=== PATIENT | male | born 1965 | race Caucasian/White ===

== ENCOUNTER 2020-09-23 11:04 | Emergency (ER) | payer OTHER, SELFPAY ==
[2020-09-23 11:23] VITALS: BP 153/93; PULSE 97; RESP 17; TEMP 36.8; O2SAT 97
--- NOTE | 2020-09-23 11:34 | ED.GENADULT ---
HPI - General Adult General Chief complaint: Abdominal Pain Stated complaint: Abdominal Pain Time Seen by Provider: 09/23/20 11:34 Source: patient Mode of arrival: ambulatory Limitations: no limitations History of Present Illness HPI narrative: 54-year-old male patient presents to the [facility] with complaints of abdominal pain for the past week and diarrhea x1 week. Denies any vomiting or nausea. Denies any fevers, body aches or chills. Patient is an active smoker and does drink daily. Patient states he has not seen a doctor in about 30 years. Patient denies take anything for his symptoms. Related Data Home Medications Medication Instructions Recorded Confirmed No Home Medications 09/23/20 09/23/20 Allergies Allergy/AdvReac Type Severity Reaction Status Date / Time aspirin AdvReac Other Verified 09/23/20 11:31 Penicillins AdvReac Other Verified 09/23/20 11:31 Review of Systems Review of Systems: Narrative: CONSTITUTIONAL: Denies fever, chills, or sweats. EYES: Denies visual changes, redness, or discharge. ENT: Denies rhinorrhea, congestion, sore throat, or otalgia. CARDIOVASCULAR: Denies chest pain, palpitations, or edema. RESPIRATORY: Denies cough or dyspnea. GASTROINTESTINAL: Positive abdominal pain, denies nausea, vomiting, positive diarrhea. GENITOURINARY: Denies dysuria or hematuria. SKIN: Denies rash or itching. MUSCULOSKELETAL: Denies back pain, joint pain, or myalgia. NEUROLOGIC: Denies headache, numbness, or weakness. PSYCHIATRIC: Denies anxiety or depression. [facility] Social History Social History (Updated 09/23/20 @ 11:41 by EMANUEL Mckeon) Smoking status: Current every day smoker Tobacco type: cigarettes Alcohol intake: current Alcohol use details: 6 pack/day Gender identity (if verbalized by the patient): Male Comments At the time of my signature I agree with nursing past medical history, surgical, social, and family history. There is no relevant family history pertinent to the presenting complaint. Exam Narrative: Exam Narrative: GENERAL: Well-appearing, well-nourished, and in no acute distress. HEAD: Normocephalic, atraumatic. EYES: PERRLA and EOMI. ENT: Nares clear, no rhinorrhea or epistaxis. Mucous membranes moist. NECK: Supple. No lymphadenopathy CHEST: Clear to auscultation. No respiratory distress. HEART: Regular rate and rhythm. No murmur heard. Normal peripheral pulses. ABDOMEN: Soft, flat, nondistended. Patient has significant tenderness noted to the left upper quadrant as well as guarding present. No rebound tenderness, or rigid. No pulsatilla masses. Bowel sounds present in all four quadrants. No organomegaly. Negative Gracia?s sign. No periumbicial tenderness. No Supra public tenderness or distension. Good femoral pulses bilaterally. No hernia noted. No scars or surface trauma. EXTREMITIES: Normal range of motion. No edema. SKIN: Warm, dry, no rash. NEURO: No focal deficits. Alert and oriented x3. Course Vital Signs Vital signs: Vital Signs Temperature 36.8 C 09/23/20 11:23 Pulse Rate 97 09/23/20 11:23 Respiratory Rate 17 09/23/20 11:23 Blood Pressure 153/93 H 09/23/20 11:23 Pulse Oximetry 97 09/23/20 11:23 Temperature 36.8 C 09/23/20 11:23 Pulse Rate 97 09/23/20 11:23 Respiratory Rate 17 09/23/20 11:23 Blood Pressure 153/93 H 09/23/20 11:23 Pulse Oximetry 97 09/23/20 11:23 Vital signs reviewed The patient has been informed that they may have pre-hypertension or Hypertension based on a BP reading in the department. I recommend that the patient call the primary care provider listed on their discharge instructions or a physician of their choice this week to arrange follow up for further evaluation of possible pre-hypertension or Hypertension Transfer Transfered to: [place] Transfer rationale: Left upper quadrant abdominal pain Accepting physician: Dr. Bone Transfer comments: Called and spoke with Dr. Larose at [facility]
== END 2020-09-23 11:44 | disposition short-term general hospital (02) ==
PROVIDERS: Emergency Provider Nurse Practitioner Family
DX: R10.12 Left upper quadrant pain (principal); F17.210 Nicotine dependence, cigarettes, uncomplicated
CPT/HCPCS: 99212; G0463

== ENCOUNTER 2020-09-23 12:07 | Emergency (ER) | payer OTHER, SELFPAY ==
--- NOTE | ~2020-09-23 | CT_ITS ---
EXAMINATION: CT abdomen pelvis w con DATE: 09/23/2020 13:12 INDICATION: Abdominal pain. TECHNIQUE: Computed tomography (CT) of the abdomen and pelvis was performed with 100 mL Omnipaque 350 intravenous contrast. Automated exposure control and iterative reconstruction technique were employe d. The dose-length product was 762.52 mGy-cm. COMPARISON: None. FINDINGS: The visualized portions of the lung bases demonstrate mild atelectasis. No pleural effusion . The heart size is normal. No pericardial effusion. There are coronary artery calcifications. There is splenomegaly measuring 15.6 cm. The liver, gallbladder, pancreas, adrenal glands, and kidneys are normal. There is diffuse bladder wall thickening, likely secondary to chronic outlet obstruction from the mildly enlarged prostate. There are no dilated loops of bowel. The appendix is normal. There are no pathologically enlarged lymph nodes. There is no free intraperitoneal fluid. There is mild lumbar spondylosis. IMPRESSION: 1. Moderate splenomegaly. Reviewed, dictated and finalized at location B. FINDER TWISTING DEPARTMENT IMPRESSION: 1. Moderate splenomegaly.
--- NOTE | 2020-09-23 12:23 | ECG_ITS ---
Measurements Intervals [place] Rate: 85 P: 1 ID: 148 QRS: 49 QRSD: 102 T: 49 QT: 348 QTc: 414 Interpretive Statements SINUS RHYTHM INCOMPLETE RIGHT BUNDLE BRANCH BLOCK BORDERLINE ECG Electronically Signed On 09-23-2020 13:52:09 GARAGE HELPER by Rosales Arias D.O.
--- NOTE | 2020-09-23 12:23 | ED.GENADULT ---
HPI - General Adult General Chief complaint: Abdominal Pain Stated complaint: abdominal pain Time Seen by Provider: 09/23/20 12:09 Source: RN notes reviewed History of Present Illness HPI narrative: Patient presents emergency department from home for left upper quadrant abdominal pain. Patient states pain began 1 week ago. Pain is located left upper quadrant does not radiate described as sharp and stabbing in nature improves when he lays down flat but never resolves. States is associated with diarrhea for the past 1 week. He denies any fevers or chills chest pain shortness of breath nausea vomiting or any other symptoms Related Data Allergies Allergy/AdvReac Type Severity Reaction Status Date / Time aspirin AdvReac Other Verified 09/23/20 12:40 Penicillins AdvReac Other Verified 09/23/20 12:40 Review of Systems Review of Systems: Narrative: Gen.: Denies fevers or chills ENT: Denies congestion Respiratory: Denies shortness of breath or cough CV: Denies chest pain or palpitations GI: See HPI denies burning, urgency, frequency or hematuria Musculoskeletal: Denies back pain or muscle pain Neuro: Denies numbness, tingling, weakness or focal weakness Skin: Denies rash Except as documented, all other systems reviewed and negative PMFSH Past Medical History Medical History (Updated 09/23/20 @ 14:45 by Hunter Bone DO) Patient denies significant medical history Social History Social History Smoking status: Current every day smoker Tobacco type: cigarettes Alcohol intake: current Gender identity (if verbalized by the patient): Male Exam Narrative: Exam Narrative: APPEARANCE: No acute distress, nontoxic, resting in bed HEENT: Normocephalic, atraumatic, OMM RESPIRATORY: No respiratory distress, clear to auscultation bilaterally with no rhonchi wheezing or rales CARDIOVASCULAR: RRR s murmur ABDOMINAL: Soft, nondistended, tender palpation left upper quadrant, no tenderness right upper quadrant, right lower quadrant left lower quadrant no rebound or guarding MUSCULOSKELETAl: Moves all extremities. No clubbing, cyanosis or edema. NEURO: Awake and alert. Following commands, speech normal, no focal deficits SKIN:: Warm, dry. Normal Color PSYCHIATRIC: Normal affect/mood Course Course Emergency Course: Patient states that they are feeling much better at this time. States abdominal pain has resolved. Repeat abdominal exam shows the patient's abdomen to be soft and nontender. Discussed with patient results of workup and diagnosis. Discussed need for follow-up with primary care physician, reasons to return to the emergency department in proper use of medication. Patient understands and agrees to current treatment plan discussed with patient his lab results showing hyperglycemia patient with no history of diabetes started the patient is to follow-up with primary care physician Dr. Ramirezfor further outpatient evaluation Vital Signs Vital signs: Vital Signs Temperature 98.8 F 09/23/20 12:30 Pulse Rate 96 09/23/20 12:30 Respiratory Rate 16 09/23/20 12:30 Blood Pressure 151/107 H 09/23/20 12:30 Pulse Oximetry 100 09/23/20 12:30 Temperature 98.8 F 09/23/20 12:30 Pulse Rate 96 09/23/20 12:30 Respiratory Rate 16 09/23/20 12:30 Blood Pressure 151/107 H 09/23/20 12:30 Pulse Oximetry 100 09/23/20 12:30 Medical Decision Making MDM Narrative Medical decision making narrative: Patient's abdomen is soft without significant pain or signs of surgical abdomen on serial exams. Lab and x-ray evaluations are reviewed and patient is felt to be a reasonable candidate for outpatient management. Patient was instructed as to limitations of x-ray and laboratory evaluation and encouraged to return to ED or primary physician for repeat exam in 12 hours if continued or worsening pain Vital Signs Vital Signs: Vital Signs Temperature 98.8 F 09/23/20 12:3
[2020-09-23 12:30] VITALS: BP 151/107; PULSE 96; RESP 16; TEMP 37.1; O2SAT 100
[2020-09-23] MEDS: SODIUM CHLORIDE 0.9% IV 1,000 ML 999 ML IV CONT (12:31)
[2020-09-23 12:35] LABS: Basophils Percent Auto 0.6 % (0.2-1.2); Eosinophils Absolute Auto 0.1 K/mm3 (0-0.3); Hematocrit 47.7 % (42.0-52.0); Hemoglobin 17.7 g/dL (14.0-18.0); Immature Granulocyte Absolute 0.02 K/mm3 (0.00-0.031); Immature Granulocyte Percent A 0.4 % (0-0.5); Immature Platelet Fraction Pct 4.3 % (0.9-11.2); Lymphocytes Absolute Auto 0.83 K/mm3 (0.9-3.2); Lymphocytes Percent Auto 16.2 % (18.3-44.2); Mean Corpuscular HGB Conc 37.1 g/dl (32-36); Mean Corpuscular Hemoglobin 33.4 pg (26-34); Mean Platelet Volume 9.9 fl (7.4-10.4); Monocytes Absolute Auto 0.7 K/mm3 (0.1-0.6); Monocytes Percent Auto 12.9 % (2.6-8.5); Neutrophils Absolute Auto 3.5 K/mm3 (1.3-6.7); Neutrophils Percent Auto 67.9 % (45.5-73.1); Platelet Count Result 134 k/mm3 (150-375); Red Cell Distribution Width 12.8 % (11.5-14.5); White Blood Count 5.1 K/mm3 (4.5-10.0)
[2020-09-23 12:44] LABS: Lipase 130 U/L (23-300)
[2020-09-23 12:46] LABS: Alanine Aminotransferase 22 U/L (4-50); Albumin Level 4.7 g/dL (3.5-5.1); Alkaline Phosphatase 73 U/L (38-126); Anion Gap 9 mmol/L (8-16); Aspartate Amino Transferase 24 U/L (17-59); Bilirubin,Total 1.4 mg/dL (0.2-1.3); Blood Urea Nitrogen 9 mg/dL (9-20); Calcium 9.4 mg/dL (8.4-10.2); Carbon Dioxide 30 mmol/L (22-30); Chloride 96 mmol/L (98-107); Estimated CRCL calculation 129 ml/min; Estimated Glomerular Filt Rate > 60; Glucose 326 mg/dL (75-110); Potassium 4.5 mmol/L (3.4-5.0); Sodium 135 mmol/L (137-145)
[2020-09-23 13:10] LABS: Add Urine Microscopic? YES; Appearance Urine Clear (Clear); Bilirubin Urine Negative (Negative); Blood Urine Negative (Negative); Color Urine Yellow (Yellow); Glucose Urine UA 3+ mg/dL (Negative); Ketones Urine Negative (Negative); Leukocyte Esterase Ur Negative LEU/UL (Negative); Nitrate Urine Negative (Negative); Protein Urine Negative (Negative); RBC Urine 0-2 /hpf (0-2); Specific Grav Ur 1.026 (1.001-1.035); WBC Urine 0-3 /hpf
--- NOTE | 2020-09-23 13:14 | PC.NURSE ---
1314 - Patient in CT at this time.
[2020-09-23 14:47] LABS: Glucose Point of Care 274 (65-105)
[2020-09-23] MEDS: FAMOTIDINE 20 MG/2 ML VIAL IV PUSH (14:50)
== END 2020-09-23 15:00 | disposition home or self-care (01) ==
PROVIDERS: Emergency Provider Emergency Medicine
DX: R10.12 Left upper quadrant pain (principal); F17.210 Nicotine dependence, cigarettes, uncomplicated; I45.10 Unspecified right bundle-branch block
CPT/HCPCS: 36415; 74177; 80053; 81001; 83690; 85025; 85055; 93005; 96365; 96366; 96375; 99284; A9270; J0131; J7030; Q9967

== ENCOUNTER 2020-09-27 12:02 | Outpatient (CLI) | payer OTHER, SELFPAY ==
[2020-09-27 12:33] LABS: Hemoglobin A1C 7.3 % (<5.7)
[2020-09-27 12:51] LABS: Creatinine Urine 148.4 mg/dL
[2020-09-27 12:58] LABS: MALB Creatinine Ratio 12.7 mg/g (0-30); Microalbumin Urine Random 18.9 mg/L (0-16.7)
[2020-09-27 13:07] LABS: Vitamin D 25 Hydroxy 26.7 ng/mL
[2020-09-27 13:09] LABS: Prostate Specific Antigen 1.4 ng/mL (< OR = 4.0)
[2020-09-27 13:44] LABS: Folic Acid 8.6 ng/mL (2.76->20)
[2020-10-01 15:23] LABS: Glutamic acid decarboxylase AA <5 IU/mL (<5)
[2020-10-03 22:34] LABS: Islet Cell Antibody Screen NEGATIVE (NEGATIVE)
== END 2020-09-27 12:03 | disposition home or self-care (01) ==
PROVIDERS: PCP Internal Medicine; Visit Provider Internal Medicine
DX: R73.9 Hyperglycemia, unspecified (principal); I10 Essential (primary) hypertension; E55.9 Vitamin D deficiency, unspecified; G62.1 Alcoholic polyneuropathy; Z12.5 Encounter for screening for malignant neoplasm of prostate
CPT/HCPCS: 36415; 82043; 82306; 82607; 82746; 83036; 84153; 86341; G0103

== ENCOUNTER 2020-10-03 14:13 | Outpatient (CLI) | payer OTHER, SELFPAY ==
--- NOTE | ~2020-10-03 | CT_ITS ---
EXAMINATION: CT lung screening EXAM DATE: 10/03/2020 15:03 INDICATION: Z87.891 Personal history of nicotine dependence. TECHNIQUE: Spiral low dose CT of the chest without contrast. Axial, coronal and sagittal images were reviewed. The dose-length product (DLP) for this examination was 187.12 mGy-cm. The exposure was t ailored according to patient size (auto mA exposure control), and iterative reconstruction (ASIR) was used as additional dose reduction technique. There is no prior study for comparison. FINDINGS: Couple of punctate granulomata. The lungs are clear. Tracheobronchial tree is patent. T here is no mediastinal, hilar or axillary lymphadenopathy. There are no pleural or pericardial effu sions. There is no pneumothorax. Heart normal in size. There is mild to moderate coronary arter ial calcification, arterial sclerosis. Left adrenal hyperplasia. There is thoracic spondylosis witho ut osteoblastic or osteolytic lesions identified. IMPRESSION: Lung-RADS category 2, benign appearance or behavior (<1% chance of malignancy); recommend continued LDCT screening in 1 year. Reviewed, dictated and finalized at location A. NCIAL CONTROLLER
== END 2020-10-03 14:14 | disposition home or self-care (01) ==
PROVIDERS: PCP Internal Medicine; Visit Provider Internal Medicine
DX: Z12.2 Encounter for screening for malignant neoplasm of respiratory organs (principal); Z87.891 Personal history of nicotine dependence
CPT/HCPCS: G0297

== ENCOUNTER 2020-10-11 15:20 | Outpatient (CLI) | payer OTHER, SELFPAY ==
[2020-10-11 15:43] LABS: Basophils Percent Auto 0.7 % (0.2-1.2); Eosinophils Absolute Auto 0.2 K/mm3 (0-0.3); Eosinophils Percent Auto 2.8 % (0-4.4); Hematocrit 44.9 % (42.0-52.0); Hemoglobin 16.2 g/dL (14.0-18.0); Immature Granulocyte Absolute 0.02 K/mm3 (0.00-0.031); Immature Granulocyte Percent A 0.3 % (0-0.5); Lymphocytes Absolute Auto 1.79 K/mm3 (0.9-3.2); Lymphocytes Percent Auto 29.4 % (18.3-44.2); Mean Corpuscular HGB Conc 36.1 g/dl (32-36); Mean Corpuscular Hemoglobin 33.5 pg (26-34); Mean Corpuscular Volume 92.8 fl (80-100); Mean Platelet Volume 10.1 fl (7.4-10.4); Monocytes Absolute Auto 0.7 K/mm3 (0.1-0.6); Monocytes Percent Auto 10.9 % (2.6-8.5); Neutrophils Absolute Auto 3.4 K/mm3 (1.3-6.7); Neutrophils Percent Auto 55.9 % (45.5-73.1); Platelet Count Result 210 k/mm3 (150-375); Red Blood Count 4.84 M/mm3 (4.6-6.20); White Blood Count 6.1 K/mm3 (4.5-10.0)
[2020-10-11 16:06] LABS: Alanine Aminotransferase 19 U/L (4-50); Albumin Level 4.3 g/dL (3.5-5.1); Alkaline Phosphatase 73 U/L (38-126); Amylase 66 U/L (30-110); Anion Gap 7 mmol/L (8-16); Aspartate Amino Transferase 23 U/L (17-59); Bilirubin,Total 0.5 mg/dL (0.2-1.3); Blood Urea Nitrogen 13 mg/dL (9-20); Calcium 9.2 mg/dL (8.4-10.2); Carbon Dioxide 29 mmol/L (22-30); Chloride 102 mmol/L (98-107); Estimated Glomerular Filt Rate > 60; Glucose 224 mg/dL (75-110); Lipase 187 U/L (23-300); Potassium 4.4 mmol/L (3.4-5.0); Sodium 138 mmol/L (137-145)
[2020-10-11 16:07] LABS: Erythrocyte Sedimentation Rate 13 mm/hr (0-20)
[2020-10-11 16:46] LABS: Hepatitis B Surface Antigen Negative (Negative)
[2020-10-11 16:52] LABS: HAV RESULT Negative (Negative); Hepatitis B Core IgM Result Negative (Negative)
[2020-10-11 17:01] LABS: Lactate Dehydrogenase 352 U/L (313-618)
[2020-10-11 17:03] LABS: Hepatitis C Virus Antibody Negative (Negative)
[2020-10-11 17:38] LABS: Folic Acid 9.1 ng/mL (2.76->20)
[2020-10-16 21:32] LABS: ALT 15 U/L (9-46); Alpha-2-Macroglobulin 246 mg/dL (106-279); Apolipoprotein A1 115 mg/dL (94-176); Fibrosis Stage F1-F2; GGT 37 U/L (3-85); Haptoglobin 172 mg/dL (43-212); Necroinflammat Act Grade A0; Total Bilirubin 0.5 mg/dL (0.2-1.2)
== END 2020-10-11 15:21 | disposition home or self-care (01) ==
LOC: ANHLAB 15:22
PROVIDERS: Internal Medicine Gastroenterology; PCP Internal Medicine; Visit Provider Internal Medicine
DX: R16.1 Splenomegaly, not elsewhere classified (principal); E11.9 Type 2 diabetes mellitus without complications; D69.6 Thrombocytopenia, unspecified; G62.1 Alcoholic polyneuropathy
CPT/HCPCS: 36415; 80053; 80074; 81596; 82150; 82607; 82746; 83615; 83690; 85025; 85652; 86038

== ENCOUNTER 2020-10-20 11:49 | Emergency (ER) | payer OTHER, SELFPAY ==
--- NOTE | 2020-10-20 11:55 | ED.GENADULT ---
HPI - General Adult General Chief complaint: Skin/Abscess/Foreign Body Stated complaint: roght foot pain Time Seen by Provider: 10/20/20 11:55 Source: patient Mode of arrival: ambulatory Limitations: no limitations History of Present Illness HPI narrative: 54-year-old male patient presents to the [facility] with complaints of right foot wound that he noticed yesterday. Patient states that he has some numbness and tingling to his feet and typically does not feel his feet very well was recently diagnosed with diabetes within the last month that he is trying to get under control with insulin. Patient denies any injury to the foot that he is aware of. Patient states he has not put any antibiotic ointment or clean the areas at all since noticing it yesterday. Denies any fevers, body aches or chills. Related Data Home Medications Medication Instructions Recorded Confirmed ertugliflozin [Steglatro] 5 mg PO DAILY 10/20/20 10/20/20 insulin glargine [Lantus Solostar 20 unit SUBCUT QAM 10/20/20 10/20/20 U-100 Insulin] lisinopril [Zestril] 20 mg PO DAILY 10/20/20 10/20/20 omeprazole [Prilosec] 40 mg PO DAILY 10/20/20 10/20/20 sucralfate [Carafate] 1 g PO DAILY 10/20/20 10/20/20 Allergies Allergy/AdvReac Type Severity Reaction Status Date / Time aspirin AdvReac Other Verified 10/20/20 12:08 Penicillins AdvReac Other Verified 10/20/20 12:08 Review of Systems Review of Systems: Narrative: CONSTITUTIONAL: Denies fever, chills, or sweats. EYES: Denies visual changes, redness, or discharge. ENT: Denies rhinorrhea, congestion, sore throat, or otalgia. CARDIOVASCULAR: Denies chest pain, palpitations, or edema. RESPIRATORY: Denies cough or dyspnea. GASTROINTESTINAL: Denies abdominal pain, nausea, vomiting, or diarrhea. GENITOURINARY: Denies dysuria or hematuria. SKIN: Denies rash or itching. Positive wound to right foot since yesterday MUSCULOSKELETAL: Denies back pain, joint pain, or myalgia. NEUROLOGIC: Denies headache, numbness, or weakness. PSYCHIATRIC: Denies anxiety or depression. PMF Past Medical History Medical History (Updated 10/20/20 @ 12:15 by EMANUEL Mckeon) Alcohol use disorder Alcoholic polyneuropathy Bladder wall thickening Diabetes Hypovitaminosis D Obesity Patient denies significant medical history Spleen enlarged Thrombocytopenia Uncontrolled hypertension Social History Social History Smoking packs per day: 1 Smoking cigarettes per day: 20.0 Years smoked: 40 Smoking pack-years: 40.00 Smoking status: Current every day smoker Tobacco type: cigarettes Alcohol intake: current Drinks per week: 36 Substance use: never Substance use type: does not use Gender identity (if verbalized by the patient): Male Comments At the time of my signature I agree with nursing past medical history, surgical, social, and family history. There is no relevant family history pertinent to the presenting complaint. Exam Narrative: Exam Narrative: GENERAL: Well-appearing, well-nourished, and in no acute distress. HEAD: Normocephalic, atraumatic. EYES: PERRLA and EOMI. ENT: Nares clear, no rhinorrhea or epistaxis. Mucous membranes moist. NECK: Supple. No lymphadenopathy CHEST: Clear to auscultation. No respiratory distress. HEART: Regular rate and rhythm. No murmur heard. Normal peripheral pulses. ABDOMEN: Soft, nontender, nondistended, normal active bowel sounds. EXTREMITIES: Normal range of motion. No edema. Patient does have some ulcers noted to the lateral side of the right foot. 1 ulcer is measuring approximately 3 cm and is slightly open with surrounding erythema but no active discharge. Patient has another ulcer noted to the lateral side of the right foot that is approximately 2 cm with a blister intact. The ulcers are very superficial SKIN: Warm, dry, no rash. NEURO: No focal deficits. Alert and oriented x3. Course Vital Signs Vit
[2020-10-20 12:01] VITALS: BP 145/78; PULSE 89; RESP 16; TEMP 37.3; O2SAT 100
[2020-10-20 12:09] VITALS: BP 145/78; PULSE 89; RESP 16; TEMP 37.3; O2SAT 100
== END 2020-10-20 12:20 | disposition home or self-care (01) ==
PROVIDERS: Emergency Provider Nurse Practitioner Family; PCP Internal Medicine
DX: E11.621 Type 2 diabetes mellitus with foot ulcer (principal); L97.519 Non-pressure chronic ulcer of other part of right foot with unspecified severity; F17.210 Nicotine dependence, cigarettes, uncomplicated
CPT/HCPCS: 99213; G0463

== ENCOUNTER 2020-10-31 08:01 | Outpatient (CLI) | payer OTHER, SELFPAY ==
--- NOTE | ~2020-10-31 | US_ITS ---
US abdomen complete EXAMINATION: US Abdomen Complete INDICATION: Epigastric pain PROCEDURE: Realtime High Resolution abdomen ultrasound. COMPARISON: No prior studies for comparison FINDINGS: Gallbladder within normal limits. No gallstones, pericholecystic fluid, gallbladder wall t hickening or biliary dilatation. Common bile duct measures 5 mm. Liver echotexture within normal limits without focal mass. Pancreas within normal limits. Pancreati c tail is obscured by bowel gas. Spleen is enlarged measuring 13.8 cm. Renal echotexture is within n ormal limits bilaterally without hydronephrosis, contour deforming mass or renal stone. Right kidney measures 12.6 cm. Left kidney measures 11.4 cm. Visualized aspects of the aorta and IVC are within normal limits. Portal vein is patent. No sonograph ic Gracia's sign indicated by the technologist. IMPRESSION: 1: Splenomegaly. Reviewed, dictated and finalized at location A. INE BRUSH MAKER IMPRESSION: 1: Splenomegaly.
--- NOTE | ~2020-10-31 | US_ITS ---
US arterial ankle brachial ind INDICATION: Peripheral vascular disease. TECHNIQUE: Segmental pressures and plethysmographic and Doppler waveforms of the brachial and lower e xtremity arteries were obtained. COMPARISON: None. FINDINGS: Right and left brachial artery pressures of 137 mm Hg and 136 mm Hg, respectively, are concordant (no rmal difference <= 30 mmHg). The right ankle-brachial index (DEBORA) is 0.68 (normal >= 0.9-1.0). The right great toe-brachial index (TBI) is 0.45 (normal >= 0.60). The left DEBORA is 0.65. The left TBI is 0.59. IMPRESSION: 1. Diminished bilateral ankle-brachial indices consistent with moderate peripheral arterial disease. Reviewed, dictated and finalized at location A. TITCHER LOCKSTITCH IMPRESSION: 1. Diminished bilateral ankle-brachial indices consistent with moderate periphe ral arterial disease.
== END 2020-10-31 08:02 | disposition home or self-care (01) ==
PROVIDERS: PCP Internal Medicine; Visit Provider Internal Medicine Gastroenterology
DX: I73.9 Peripheral vascular disease, unspecified (principal); D69.6 Thrombocytopenia, unspecified; R10.13 Epigastric pain; R16.1 Splenomegaly, not elsewhere classified
CPT/HCPCS: 76700; 93922

== ENCOUNTER 2020-11-16 01:22 | Outpatient (CLI) | payer OTHER, SELFPAY ==
[2020-11-16 20:08] LABS: SARS-CoV-2 RNA PCR Negative
== END 2020-11-16 01:23 | disposition home or self-care (01) ==
LOC: ANHCOVIDDT 01:22
PROVIDERS: PCP Internal Medicine; Visit Provider Internal Medicine Gastroenterology
DX: Z01.812 Encounter for preprocedural laboratory examination (principal); Z20.822 Contact with and (suspected) exposure to COVID-19
CPT/HCPCS: C9803; U0003

== ENCOUNTER 2020-11-19 01:46 | Day surgery (SDC) | payer OTHER, SELFPAY ==
[2020-11-06 09:48] VITALS: BMI 26.4
[2020-11-19 10:54] VITALS: BP 137/78; PULSE 103; RESP 16; TEMP 36.4; O2SAT 100
[2020-11-19] MEDS: LACTATED RINGERS 1,000 ML 150 ML IV CONT (11:06)
[2020-11-19 11:09] LABS: Glucose Point of Care 83 (65-105)
--- NOTE | 2020-11-19 11:16 | WPDANESEPPF ---
Anes - Initial Pre Proc Eval Procedure: Operation Date: 11/19/20 12:00 Proposed Procedures p Esophagogastroduodenoscopy & Screening Colonoscopy - Apolinar Osorio MD Date/Time: 11/19/20 11:16 Surgeon: Apolinar Osorio MD Pre Op Diagnosis: abdominal pain Patient Data Age: 54 Gender: M Height: 6 ft 1 in Weight: 87.7 kg Last Vital Signs Temp 97.5 F L 11/19/20 10:54 Pulse 103 H 11/19/20 10:54 Resp 16 11/19/20 10:54 BP 137/78 11/19/20 10:54 Pulse Ox 100 11/19/20 10:54 Allergies Allergy/AdvReac Type Severity Reaction Status Date / Time aspirin Allergy Severe Other Verified 11/19/20 10:53 Penicillins Allergy Severe Unknown Verified 11/19/20 10:53 Home Medications Medication Instructions Recorded Confirmed Type blood sugar diagnostic #100 ea 10/02/20 11/19/20 Rx blood-glucose meter #1 ea 10/02/20 11/19/20 Rx lancets #100 ea 10/02/20 11/19/20 Rx pen needle, diabetic 29 gauge x #300 ea 10/02/20 11/19/20 Rx 1/2 ertugliflozin [Steglatro] 5 mg PO DAILY 10/20/20 11/19/20 History insulin glargine [Lantus Solostar 25 unit SUBCUT QAM 10/20/20 11/19/20 History U-100 Insulin] lisinopril 20 mg tablet 20 mg PO DAILY #30 tablet 10/28/20 11/19/20 Rx omeprazole 40 mg capsule,delayed 40 mg PO DAILY #30 cap 10/28/20 11/19/20 Rx release pen needle, diabetic [BD 11/06/20 11/19/20 History Ultra-Fine Orig Pen Needle] pen needle, diabetic [BD 11/06/20 11/19/20 History Ultra-Fine Orig Pen Needle] sodium,potassium,mag sulfates 17.5 See Rx Instructions PO .COMPLEX 11/06/20 11/19/20 Rx gram-3.13 gram-1.6 gram oral soln #354 ml Laboratory Tests 11/19/20 11:05 POC Capillary Glucose 83 mg/dl mg/dl (65-105) Patient hx anesthesia problems: none Family hx anesthesia problems: none PMFSH Past Medical History Medical History (Updated 10/29/20 @ 08:52 by Eric Ramirez MD) Alcohol use disorder Alcoholic polyneuropathy Bladder wall thickening Diabetes Hypovitaminosis D Obesity Patient denies significant medical history Spleen enlarged Thrombocytopenia Uncontrolled hypertension Social History Social History Smoking packs per day: 1 Smoking cigarettes per day: 20.0 Years smoked: 40 Smoking pack-years: 40.00 Smoking status: Current every day smoker Tobacco type: cigarettes Alcohol intake: current Drinks per week: 35 Alcohol use details: BEERS Substance use: current Substance use type: marijuana Last use: 11/04/20 Living arrangements: with family Gender identity (if verbalized by the patient): Male Spiritual care concerns: No Anes - Eval Final PreProcedure Day of Procedure 11/19/20 11:16 Patient weight: normal Heart: regular rate and rhythm Lungs: clear to auscultation Airway: Mallampati scale class II Neurological: alert and oriented Last oral intake: >/= 8 hours ASA classification: III Emergent: no Anesthetic plan: proceed Anesthesia type and monitoring: general GIVS and standard monitoring Informed Consent: The patient's anesthetic plan and its attendant risks and benefits were discussed with the patient/family/POA. Questions were solicited and answers provided to the satisfaction of the patient/family/POA.
--- NOTE | 2020-11-19 11:39 | PM.HPGS ---
History of Present Illness History of Present Illness Consent: Risks, benefits, and alternatives have been discussed and questions answered. Patient agrees to proceed with procedure. Chief complaint: abdominal pain Narrative: [place] is a 54 year old male with intermittent abdominal pain, imaging showed splenomegaly, he drinks etoh and liver fibrosis panel F1-2 without obvious cirrhosis, also normal liver enzymes. He also needs screening colonoscopy Review of Systems Constitutional: Constitutional: Denies headache(s) and Denies weakness Eyes: Eyes: Denies blurry vision ENT: Reports Normal hearing present, Denies headache(s) and Denies neck pain Cardiovascular: Cardiovascular: Denies chest pain and Denies dyspnea Respiratory: Respiratory: Denies dyspnea Gastrointestinal: Gastrointestinal: Reports no additional gastrointestinal complaints Genitourinary: Genitourinary: Denies dysuria Musculoskeletal: Musculoskeletal: Denies neck pain Integumentary/Breasts: Skin/Breast: Denies dry skin Neurologic: Reports Normal hearing present, Denies headache(s) and Denies weakness Psychiatric: Psychiatric: Denies anxiety Endocrine: Endocrine: Denies change in body appearance Hematologic/Lymphatic: Hematologic/Lymphatic: Denies easy bleeding Allergic/Immunologic: Allergic/Immunologic: Denies urticaria PMFSH Past Medical History Medical History (Updated 10/29/20 @ 08:52 by Eric Ramirez MD) Alcohol use disorder Alcoholic polyneuropathy Bladder wall thickening Diabetes Hypovitaminosis D Obesity Patient denies significant medical history Spleen enlarged Thrombocytopenia Uncontrolled hypertension Social History Social History Smoking packs per day: 1 Smoking cigarettes per day: 20.0 Years smoked: 40 Smoking pack-years: 40.00 Smoking status: Current every day smoker Tobacco type: cigarettes Alcohol intake: current Drinks per week: 35 Alcohol use details: BEERS Substance use: current Substance use type: marijuana Last use: 11/04/20 Living arrangements: with family Gender identity (if verbalized by the patient): Male Spiritual care concerns: No Meds Home Medications and Allergies Home Medications Medication Instructions Recorded Confirmed Type blood sugar diagnostic #100 ea 10/02/20 11/19/20 Rx blood-glucose meter #1 ea 10/02/20 11/19/20 Rx lancets #100 ea 10/02/20 11/19/20 Rx pen needle, diabetic 29 gauge x #300 ea 10/02/20 11/19/20 Rx 1/2 ertugliflozin [Steglatro] 5 mg PO DAILY 10/20/20 11/19/20 History insulin glargine [Lantus Solostar 25 unit SUBCUT QAM 10/20/20 11/19/20 History U-100 Insulin] lisinopril 20 mg tablet 20 mg PO DAILY #30 tablet 10/28/20 11/19/20 Rx omeprazole 40 mg capsule,delayed 40 mg PO DAILY #30 cap 10/28/20 11/19/20 Rx release pen needle, diabetic [BD 11/06/20 11/19/20 History Ultra-Fine Orig Pen Needle] pen needle, diabetic [BD 11/06/20 11/19/20 History Ultra-Fine Orig Pen Needle] sodium,potassium,mag sulfates 17.5 See Rx Instructions PO .COMPLEX 11/06/20 11/19/20 Rx gram-3.13 gram-1.6 gram oral soln #354 ml Allergies Allergy/AdvReac Type Severity Reaction Status Date / Time aspirin Allergy Severe Other Verified 11/19/20 10:53 Penicillins Allergy Severe Unknown Verified 11/19/20 10:53 Vital Signs Vital Signs - 24 hr 11/19/20 10:54 Temperature 97.5 F L Pulse Rate 103 H Respiratory Rate 16 Blood Pressure 137/78 Pulse Oximetry 100 Exam Const: General: comfortable and no acute distress HENMT: General nose exam: Normal nares present Eyes: General: appearance normal, both eyes and all related structures Neck: Neck: no JVD Resp: Auscultation: clear to auscultation bilaterally Cardio: Rate: regular rate Rhythm: regular rhythm GI: Inspection: non-distended GI Palp: Yes Soft to palpation Skin: General skin exam: normal color Neuro: Genera
[2020-11-19 12:23] VITALS: BP 98/66; PULSE 79; RESP 17; O2SAT 99
[2020-11-19 12:33] VITALS: BP 110/73; PULSE 78; RESP 24; O2SAT 99
[2020-11-19 12:42] LABS: Glucose Point of Care 91 (65-105)
[2020-11-19 12:43] VITALS: BP 126/91; PULSE 79; RESP 23; O2SAT 100
== END 2020-11-19 12:57 | disposition home or self-care (01) ==
PROVIDERS: PCP Internal Medicine; Visit Provider Internal Medicine Gastroenterology
PROC: 0DJ08ZZ Inspection of Upper Intestinal Tract, Via Natural or Artificial Opening Endoscopic (ICD-10-PCS; CPT 43235; principal; 2020-11-19 12:00)
DX: Z12.11 Encounter for screening for malignant neoplasm of colon (principal); D12.2 Benign neoplasm of ascending colon; D12.0 Benign neoplasm of cecum; D12.3 Benign neoplasm of transverse colon; R10.30 Lower abdominal pain, unspecified; Z79.84 Long term (current) use of oral hypoglycemic drugs; Z79.4 Long term (current) use of insulin; G62.1 Alcoholic polyneuropathy; E11.9 Type 2 diabetes mellitus without complications; E55.9 Vitamin D deficiency, unspecified; R16.1 Splenomegaly, not elsewhere classified; D69.6 Thrombocytopenia, unspecified; F17.210 Nicotine dependence, cigarettes, uncomplicated; F12.10 Cannabis abuse, uncomplicated; R93.3 Abnormal findings on diagnostic imaging of other parts of digestive tract; K29.50 Unspecified chronic gastritis without bleeding
CPT/HCPCS: 43239; 45385; 88305; J2704; J7120

== ENCOUNTER 2020-12-09 10:01 | Outpatient (CLI) | payer OTHER, SELFPAY ==
[2020-12-09 10:20] LABS: Basophils Percent Auto 0.6 % (0.2-1.2); Eosinophils Absolute Auto 0.1 K/mm3 (0-0.3); Eosinophils Percent Auto 1.5 % (0-4.4); Hematocrit 49.7 % (42.0-52.0); Hemoglobin 17.4 g/dL (14.0-18.0); Immature Granulocyte Absolute 0.02 K/mm3 (0.00-0.031); Immature Granulocyte Percent A 0.3 % (0-0.5); Lymphocytes Absolute Auto 1.66 K/mm3 (0.9-3.2); Lymphocytes Percent Auto 23.2 % (18.3-44.2); Mean Corpuscular Hemoglobin 32.4 pg (26-34); Mean Corpuscular Volume 92.6 fl (80-100); Mean Platelet Volume 9.9 fl (7.4-10.4); Monocytes Absolute Auto 0.7 K/mm3 (0.1-0.6); Monocytes Percent Auto 9.5 % (2.6-8.5); Neutrophils Absolute Auto 4.6 K/mm3 (1.3-6.7); Neutrophils Percent Auto 64.9 % (45.5-73.1); Platelet Count Result 173 k/mm3 (150-375); Red Blood Count 5.37 M/mm3 (4.6-6.20); Red Cell Distribution Width 12.6 % (11.5-14.5); White Blood Count 7.1 K/mm3 (4.5-10.0)
[2020-12-09 10:33] LABS: Alanine Aminotransferase 18 U/L (4-50); Albumin Level 4.2 g/dL (3.5-5.1); Alkaline Phosphatase 55 U/L (38-126); Anion Gap 4 mmol/L (8-16); Aspartate Amino Transferase 20 U/L (17-59); Bilirubin,Total 0.6 mg/dL (0.2-1.3); Blood Urea Nitrogen 12 mg/dL (9-20); Calcium 9.1 mg/dL (8.4-10.2); Carbon Dioxide 33 mmol/L (22-30); Chloride 99 mmol/L (98-107); Cholesterol 182 mg/dL (0-200); Estimated Glomerular Filt Rate > 60; Glucose 128 mg/dL (75-110); HDL Direct 49 mg/dL; Potassium 4.5 mmol/L (3.4-5.0); Sodium 136 mmol/L (137-145); Triglycerides 111 mg/dL (<150)
[2020-12-09 10:44] LABS: LDL Cholesterol Direct 117 mg/dL
[2020-12-09 10:57] LABS: MALB Creatinine Ratio 3.8 mg/g (0-30); Microalbumin Urine Random 8.1 mg/L (0-16.7)
[2020-12-09 10:59] LABS: Hemoglobin A1C 6.2 % (<5.7)
== END 2020-12-09 10:02 | disposition home or self-care (01) ==
LOC: ANHLAB 10:02
PROVIDERS: PCP Internal Medicine; Visit Provider Internal Medicine
DX: D69.6 Thrombocytopenia, unspecified (principal); E11.65 Type 2 diabetes mellitus with hyperglycemia; Z51.81 Encounter for therapeutic drug level monitoring; Z79.4 Long term (current) use of insulin; E78.5 Hyperlipidemia, unspecified; I10 Essential (primary) hypertension
CPT/HCPCS: 36415; 80053; 80061; 82043; 83036; 85025

== ENCOUNTER 2020-12-23 16:06 | Outpatient (CLI) | payer OTHER, SELFPAY ==
[2020-12-23 16:59] LABS: Basophils Absolute Auto 0.1 K/mm3 (0.0-0.1); Basophils Percent Auto 0.6 % (0.2-1.2); Eosinophils Absolute Auto 0.2 K/mm3 (0-0.3); Eosinophils Percent Auto 2.4 % (0-4.4); Hematocrit 48.8 % (42.0-52.0); Hemoglobin 17.5 g/dL (14.0-18.0); Immature Granulocyte Absolute 0.02 K/mm3 (0.00-0.031); Immature Granulocyte Percent A 0.3 % (0-0.5); Lymphocytes Percent Auto 25.5 % (18.3-44.2); Mean Corpuscular HGB Conc 35.9 g/dl (32-36); Mean Corpuscular Hemoglobin 32.4 pg (26-34); Mean Corpuscular Volume 90.4 fl (80-100); Mean Platelet Volume 10.3 fl (7.4-10.4); Monocytes Absolute Auto 0.6 K/mm3 (0.1-0.6); Monocytes Percent Auto 8.2 % (2.6-8.5); Neutrophils Absolute Auto 4.9 K/mm3 (1.3-6.7); Platelet Count Result 188 k/mm3 (150-375); Red Cell Distribution Width 12.5 % (11.5-14.5); White Blood Count 7.8 K/mm3 (4.5-10.0)
[2020-12-23 17:22] LABS: Alanine Aminotransferase 18 U/L (4-50); Albumin Level 4.3 g/dL (3.5-5.1); Alkaline Phosphatase 57 U/L (38-126); Anion Gap 4 mmol/L (8-16); Aspartate Amino Transferase 24 U/L (17-59); Bilirubin,Total 0.5 mg/dL (0.2-1.3); Blood Urea Nitrogen 11 mg/dL (9-20); Calcium 9.4 mg/dL (8.4-10.2); Carbon Dioxide 32 mmol/L (22-30); Chloride 103 mmol/L (98-107); Estimated Glomerular Filt Rate > 60; Glucose 108 mg/dL (75-110); Potassium 3.9 mmol/L (3.4-5.0); Sodium 139 mmol/L (137-145)
[2020-12-26 06:25] LABS: Angiotensin Converting Enzyme 4 U/L (9-67)
[2020-12-26 14:52] LABS: BCR/abl Prior Result Not Given
[2020-12-26 15:45] LABS: BCR/abl P190 Not Detected; BCR/abl P210 Not Detected
[2020-12-26 15:46] LABS: BCR/abl P190 Chg YES; BCR/abl P210 Chg YES
[2020-12-30 13:37] LABS: CALR Exon 9 Mutation Not Detected (Not Detected); CSF3R Exon 14/17 Mutation Not Detected (Not Detected); Clinical Indication Not Given; JAK2 Exon 12 Mutation Not Detected (Not Detected); JAK2 V617F Mutation Not Detected (Not Detected); MPL Exon 10 Mutation Not Detected (Not Detected); Specimen Source Blood
== END 2020-12-23 16:07 | disposition home or self-care (01) ==
LOC: ANHLAB 16:08
PROVIDERS: PCP Internal Medicine; Visit Provider Internal Medicine Hematology & Oncology
DX: R16.1 Splenomegaly, not elsewhere classified (principal)
CPT/HCPCS: 36415; 80053; 81206; 81207; 81219; 81270; 81402; 81403; 81479; 82164; 85025; 88184

== ENCOUNTER 2021-03-10 09:35 | Outpatient (CLI) | payer OTHER, SELFPAY ==
--- NOTE | ~2021-03-10 | XR_ITS ---
EXAMINATION: [id number] EXAM DATE: 03/10/2021 09:57 INDICATION: Neck pain. Left arm tingling. TECHNIQUE: Cervical spine frontal and lateral projections. Open-mouth odontoid projection. There is no prior study for comparison. FINDINGS: There is moderate disc disease at C6-7, mild to moderate at C3-4 and C4-5. There is modera te cervical facet arthropathy and mid cervical uncovertebral joint arthropathy. The vertebral bodies are aligned in the AP dimension. The odontoid process is intact. The lateral masses of C1 line up wi th C2. Prevertebral soft tissue and pre-dens space are within normal limits. Lung apices are unrem arkable. IMPRESSION: 1. Overall moderate cervical spondylosis. Reviewed, dictated and finalized at location A.
[2021-03-10 10:10] LABS: Basophils Absolute Auto 0.1 K/mm3 (0.0-0.1); Basophils Percent Auto 0.8 % (0.2-1.2); Eosinophils Absolute Auto 0.1 K/mm3 (0-0.3); Eosinophils Percent Auto 2.2 % (0-4.4); Hematocrit 45.7 % (42.0-52.0); Hemoglobin 16.6 g/dL (14.0-18.0); Immature Granulocyte Absolute 0.02 K/mm3 (0.00-0.031); Immature Granulocyte Percent A 0.3 % (0-0.5); Lymphocytes Absolute Auto 1.57 K/mm3 (0.9-3.2); Mean Corpuscular HGB Conc 36.3 g/dl (32-36); Mean Corpuscular Hemoglobin 33.1 pg (26-34); Mean Corpuscular Volume 91.2 fl (80-100); Mean Platelet Volume 9.7 fl (7.4-10.4); Monocytes Absolute Auto 0.6 K/mm3 (0.1-0.6); Monocytes Percent Auto 9.9 % (2.6-8.5); Neutrophils Absolute Auto 3.9 K/mm3 (1.3-6.7); Neutrophils Percent Auto 61.8 % (45.5-73.1); Platelet Count Result 184 k/mm3 (150-375); Red Blood Count 5.01 M/mm3 (4.6-6.20); Red Cell Distribution Width 13.2 % (11.5-14.5); White Blood Count 6.3 K/mm3 (4.5-10.0)
[2021-03-10 10:20] LABS: Hemoglobin A1C 6.1 % (<5.7)
[2021-03-10 10:24] LABS: Alanine Aminotransferase 17 U/L (4-50); Albumin Level 4.6 g/dL (3.5-5.1); Alkaline Phosphatase 54 U/L (38-126); Anion Gap 5 mmol/L (8-16); Aspartate Amino Transferase 24 U/L (17-59); Bilirubin,Total 0.6 mg/dL (0.2-1.3); Blood Urea Nitrogen 6 mg/dL (9-20); Carbon Dioxide 30 mmol/L (22-30); Chloride 104 mmol/L (98-107); Estimated Glomerular Filt Rate > 60; Glucose 99 mg/dL (75-110); Potassium 4.4 mmol/L (3.4-5.0); Sodium 139 mmol/L (137-145)
[2021-03-10 11:00] LABS: Creatinine Urine 106.3 mg/dL
[2021-03-10 11:04] LABS: MALB Creatinine Ratio 7.6 mg/g (0-30); Microalbumin Urine Random 8.1 mg/L (0-16.7)
== END 2021-03-10 09:36 | disposition home or self-care (01) ==
PROVIDERS: PCP Internal Medicine; Visit Provider Internal Medicine
DX: I10 Essential (primary) hypertension (principal); D69.6 Thrombocytopenia, unspecified; E11.65 Type 2 diabetes mellitus with hyperglycemia; Z79.4 Long term (current) use of insulin; M47.22 Other spondylosis with radiculopathy, cervical region
CPT/HCPCS: 36415; 72040; 80053; 82043; 83036; 85025